=== PATIENT | male | born 1975 | race Caucasian/White ===

== ENCOUNTER 2016-07-16 02:12 | Inpatient (IN) | payer OTHER ==
[2016-07-16 03:11] VITALS: BMI 42.7
--- NOTE | 2016-07-16 03:41 | DIRPT ---
CLINICAL DATA: Acute onset of shortness of breath and right-sided chest pain. Initial encounter. EXAM: CHEST 2 VIEW COMPARISON: Chest radiograph performed 11/09/2015 FINDINGS: The lungs are well-aerated. Mild left basilar atelectasis is noted. There is no evidence of pleural effusion or pneumothorax. The heart is normal in size; the mediastinal contour is within normal limits. No acute osseous abnormalities are seen. IMPRESSION: Mild left basilar atelectasis noted. Lungs otherwise clear. Electronically Signed By: Rebel Bowers M.D. On: 07/16/2016 03:38
--- NOTE | 2016-07-16 03:49 | EDPRACDOC ---
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 Cant inhale deeply and so feels sob when he has to breath deep. Denies fever, change in urine, cough, sore throat, trauma. Med hx = unknow, has no pcp. No abdominal surgical hx. + smoker. Pain Location: Reports: Right, Thoracic (right chest wall) Pain Caused By: Reports: Spontaneous Circumstances: Reports: Unknown Relevant History: Reports: None Pain Severity: Reports: Moderate Pain Quality: Reports: Sharp Worsened By: Reports: Breathing, Movement Associated Signs and Symptoms: Reports: Abdominal Pain, Nausea, Vomiting <Elia Woody - Last Filed: 07/16/16 06:03> <Corine Christianson - Last Filed: 07/16/16 09:34> - General Information Chief Complaint: Back Pain Stated Complaint: ABDOMINAL & BACK PAIN Home Medications: Home Medications No Home Medications 07/16/16 Allergies/Adverse Reactions: Allergies Allergy/AdvReac Type Severity Reaction Status Date / Time iodine Allergy Severe Anaphylaxis Verified 07/16/16 07:35 * shellfish derived Allergy Anaphylaxis Verified 07/16/16 07:35 * ED Past Medical History - History Reviewed Yes Nurses notes reviewed and agree except as marked - Patient Medical History Cardiac History: Reports: Hypertension GI/ History: Reports: Ulcer Psychological History: Reports: Anxiety. Denies: Depression, Substance Use Disorder Systemic History: Denies: Cancer Surgical History: Reports: Tonsillectomy/Adnoidectomy, Other (Had eustachian tubes placed a child.) - Family Medical History Reports: Hypertension, Diabetes, Cardiac Disorders (Father at age 57 from complications of [place]) - Social Medical History Smoking Status: Heavy tobacco smoker (5 or more cigarettes/day or daily pipe/ cigar) Social History: Denies: Substance Use Disorder <Elia Woody - Last Filed: 07/16/16 06:03> EDM Review of Systems - Review of Systems ROS Negative Except as Marked: Yes All systems reviewed and were negative except as marked Respiratory: Shortness of Breath Gastrointestinal: Diarrhea, Nausea, Vomiting Musculoskeletal: Chestwall (right) <Elia Woody - Last Filed: 07/16/16 06:03> - Physical Exam Constitutional: Alert Oriented to: Time, Person, Place Last recorded Vital Signs: Last Vital Signs Temp 98.6 F 07/16/16 03:08 Pulse 85 07/16/16 03:08 Resp 20 07/16/16 03:08 BP 159/99 07/16/16 03:08 Pulse Ox 98 07/16/16 03:08 Oxygen Pulse Oxygen Saturation 98 O2 Device Room Air Oxygen Flow Rate Fraction of Inspired Oxygen ( FIO2) - HEENT Head: Normal Eye Exam: negative: Conjunctival Injection, Scleral Icterus Oropharynx: negative: Drooling TMJ: Normal Nose: No Symptoms Reported Neck: Normal - Respiratory/Cardiovascular Respiratory: Normal - CTA Cardiovascular: Normal - GI Auscultation: Normal Palpation: Normal Tenderness: Moderate, RUQ, Epigastric Roberts's Sign: Positive - Musculoskeletal Back: Normal Extremities: Normal Musculoskeletal Comment: right side chest wall is non TTP. right side chest non TTP. - Integumentary Skin: Normal - Neurologic Mood Description: Normal Thought: Coherent Perception: Normal <Elia Woody - Last Filed: 07/16/16 06:03> - Physical Exam Last recorded Vital Signs: Last Vital Signs Temp 98.4 F 07/16/16 07:27 Pulse 76 07/16/16 08:33 Resp 20 07/16/16 08:33 BP 121/73 07/16/16 08:33 Pulse Ox 92 07/16/16 08:33 Oxygen Pulse Oxygen Saturation 92 O2 Device Room Air Oxygen Flow Rate Fraction of Inspired Oxygen ( FIO2) <Corine Christianson - Last Filed: 07/16/16 09:34> ED Back Exam - Neurologic Motor Deficit: None - Musculoskeletal Cervical: Normal Thoracic: Normal Lumbar: Normal Midline: Normal Paraspinous: Normal Pelvis: Normal <Elia Woody - Last Filed: 07/16/16 06:03> - Diagnostic Imaging Chest Image interpreted by: Radiologist EXAM: CHEST 2 VIEW COMPARISON: Chest radiograph performed 11/09/2015 FINDINGS: The lungs are well-aerated. Mild left basilar atelectasis is noted. There is no evidence of pleural effusion or pneumothorax. The heart is normal in size; the mediastinal contour is within normal limits. No acute osseous abnormalities are seen. IMPRESSION: Mild left basilar atelectasis noted. Lungs otherwise clear. Electronically Signed By: Rebel Bowers M.D. On: 07/16/2016 03:38 - Additional Information care given over to DR Silver at this time. <Elia Woody - Last Filed: 07/16/16 06:03> - Re-evaluation Re-evaluation 3 Re-evaluation Time: 07:30 I ASSUMED CARE OF THIS PATIENT 12/1929 DR. LEVIN WITH LABS AND RIGHT UPPER QUADRANT ULTRASOUND PENDING WITH THE PATIENT STABLE CONDITION. UPON EXAM HE IS ALERT ORIENTED. RELATIVELY COMFORTABLE. Re-evaluation 4 Re-evaluation Time: 08:53 (BACK FROM ULTRASOUND, PAIN IS INCREASING.) - Results 07/16/16 03:25 07/16/16 08:06 WBC 15.3 xk/uL (3.8-10.8) H 07/16/16 03:25 RBC 5.10 xM/uL (4.70-6.10) 07/16/16 03:25 Hgb 16.0 g/dL (14.0-18.0) 07/16/16 03:25 Hct 47.8 % (42-52) 07/16/16 03:25 MCV 94 fL (80-94) 07/16/16 03:25 MCH 31.3 pg (27-32) 07/16/16 03:25 MCHC 33.4 g/dl (33-36) 07/16/16 03:25 RDW 14.1 % (11.5-14.5) 07/16/16 03:25 Plt Count 239 xk/uL (130-400) 07/16/16 03:25 MPV 8.5 fL (7.4-10.4) 07/16/16 03:25 Neut % (Auto) 68.3 % (45-76) 07/16/16 03:25 Lymph % (Auto) 21.6 % (17-44) 07/16/16 03:25 [place] % (Auto) 7.8 % (3-10) 07/16/16 03:25 Eos % (Auto) 1.7 % (0-5) 07/16/16 03:25 Baso % (Auto) 0.6 % (0-2) 07/16/16 03:25 Absolute Neuts (auto) 10.40 xk/uL (1.7-8.2) H 07/16/16 03:25 Absolute Lymphs (auto) 3.21 xk/uL (0.65-4.75) 07/16/16 03:25 Sodium 139 mEq/L (137-146) 07/16/16 08:06 Potassium 4.9 mEq/L (3.5-5.1) 07/16/16 08:06 Chloride 105 mEq/L (98-107) 07/16/16 08:06 Carbon Dioxide 25 mMOL/L (22-33) 07/16/16 08:06 Anion Gap 14 mEq/L (8-16) 07/16/16 08:06 BUN 16 MG/DL (9-20) 07/16/16 08:06 Creatinine 0.80 MG/DL (0.66-1.25) 07/16/16 08:06 Estimated GFR (MDRD) > 60 mL/min (>=60) 07/16/16 08:06 Glucose 127 MG/DL (70-99) H 07/16/16 08:06 Calculated Osmolality 271 MOs/Kg (270-290) 07/16/16 08:06 Calcium 9.2 MG/DL (8.4-10.2) 07/16/16 08:06 Total Bilirubin 0.6 MG/DL (0.2-1.3) 07/16/16 08:06 AST 29 IU/L (17-59) 07/16/16 08:06 ALT 46 IU/L (21-72) 07/16/16 08:06 Alkaline Phosphatase 63 IU/L (38-126) 07/16/16 08:06 Total Protein 7.3 G/DL (6.3-8.2) 07/16/16 08:06 Albumin 4.0 G/DL (3.5-5.0) 07/16/16 08:06 Lipase 258 U/L (23-300) 07/16/16 08:06 Lab Results 07/16/16 07/16/16 08:06 03:25 WBC 15.3 H RBC 5.10 Hgb 16.0 Hct 47.8 MCV 94 MCH 31.3 MCHC 33.4 RDW 14.1 Plt Count 239 MPV 8.5 Neut % (Auto) 68.3 Lymph % (Auto) 21.6 [place] % (Auto) 7.8 Eos % (Auto) 1.7 Baso % (Auto) 0.6 Absolute Neuts (auto) 10.40 H Absolute Lymphs (auto) 3.21 Sodium 139 Potassium 4.9 Chloride 105 Carbon Dioxide 25 Anion Gap 14 BUN 16 Creatinine 0.80 Estimated GFR (MDRD) > 60 Glucose 127 H Calculated Osmolality 271 Calcium 9.2 Total Bilirubin 0.6 AST 29 ALT 46 Alkaline Phosphatase 63 Total Protein 7.3 Albumin 4.0 Lipase 258 - Diagnostic Imaging Abdomen Patient Name: CHINA ALLEN LOC: ED : 1975 AGE: 41 Order Date:07/16/16 Date of Service: Report # [id number] Ord Physician: Medhat Silver DO Exam # [id number] Emergency Physician: Corine Christianson MD Exam(s): [id number] US/US GALLBLADDER-BILIARY (RUQ) CLINICAL DATA: Abdominal pain with CT demonstrating large gallstone and possible mild gallbladder wall thickening. EXAM: US ABDOMEN LIMITED - RIGHT UPPER QUADRANT COMPARISON: CT of the abdomen performed earlier today. FINDINGS: Gallbladder: Shadowing 2.5 cm gallstone is identified in the neck of the gallbladder, similar to CT findings. By ultrasound, there is no overt gallbladder wall thickening. Adjacent to the gallbladder fossa, decreased echogenicity of the liver may represent fatty sparing versus edema. A sonographic Roberts sign was able to be elicited during the examination. Common bile duct: Diameter: Normal caliber of 5 mm. Liver: The liver demonstrates coarse echotexture and increased echogenicity, likely reflecting diffuse steatosis. No overt cirrhotic contour abnormalities or focal lesions are identified. There is no evidence of intrahepatic biliary ductal dilatation. The portal vein is open. IMPRESSION: 2.5 cm gallstone lodged in the neck of the gallbladder. Although by ultrasound there is no overt gallbladder wall thickening, a positive sonographic Roberts's sign was elicited and there may be some adjacent edema versus fatty sparing in the liver. Electronically Signed By: Eder Nieves M.D. On: 07/16/2016 08:55 Electronically Signed By: Eder Nieves MD Electronically Signed Date/Time: 857 Dictate Date/Time: 07/16/16 0834 Technologist: Dg Feliz Transcribed By: Huseyin Transcribed Date/Time: 07/16/16 0855 <Corine Christianson - Last Filed: 07/16/16 09:34> <Elia Woody - Last Filed: 07/16/16 06:03> - Departure Disposition: Admit IP To This Hospital Decision to Admit Time: 09:34 Decision to admit date: 07/16/16 Decision to admit: from ED - Physician Consulted Surgery Time Called: 09:11 Provider Called: Elia Pandey (VM TO CALL ED) Time Hand Tile Maker Returned Call: 09:34 <Corine Christianson - Last Filed: 07/16/16 09:34> - Departure Condition: Stable Final Diagnosis: Acute cholecystitis Referrals: None,No Provider [Primary Care Provider] - One Week
[2016-07-16] MEDS ORDERED: METHYLPREDNISOLONE 125 MG/2 ML VIAL IV ONE (04:24)
[2016-07-16] MEDS ORDERED: ONDANSETRON HCL 4 MG/2 ML VIAL IV ONE (04:25)
[2016-07-16] MEDS ORDERED: MORPHINE 4 MG/ML INJECTION IM ONE (04:25)
[2016-07-16] MEDS ORDERED: Pharmacy Review for Metformin - IV Contrast Given SCH (06:00)
--- NOTE | 2016-07-16 07:07 | DIRPT ---
CLINICAL DATA: Right abdominal pain and fever. EXAM: CT ABDOMEN AND PELVIS WITH CONTRAST TECHNIQUE: Multidetector CT imaging of the abdomen and pelvis was performed using the standard protocol following bolus administration of intravenous contrast. CONTRAST: 100 cc Isovue 370 IV. COMPARISON: No prior CT abdomen/ pelvis. Chest CT angiogram from 05/06/2014. FINDINGS: Lower chest: Basilar left lower lobe 4 mm solid pulmonary nodule (series 4/image 8). Hepatobiliary: Diffuse hepatic steatosis. No liver mass. There is a 2.6 cm peripherally calcified gallstone in the gallbladder neck. There is mild diffuse gallbladder wall thickening, without pericholecystic fluid. No biliary ductal dilatation. Pancreas: Normal, with no mass or duct dilation. Spleen: Normal size. No mass. Adrenals/Urinary Tract: Normal adrenals. Normal kidneys with no hydronephrosis and no renal mass. Normal bladder. Stomach/Bowel: Grossly normal stomach. Normal caliber small bowel with no small bowel wall thickening. Normal appendix. There is mild scattered diverticulosis throughout the colon, with no large bowel wall thickening or pericolonic fat stranding. Vascular/Lymphatic: Normal caliber abdominal aorta. Patent portal, splenic, hepatic and renal veins. No pathologically enlarged lymph nodes in the abdomen or pelvis. Reproductive: Normal size prostate. Nonspecific internal prostatic calcifications. Other: No pneumoperitoneum, ascites or focal fluid collection. Musculoskeletal: No aggressive appearing focal osseous lesions. Moderate degenerative changes in the visualized thoracolumbar spine. IMPRESSION: 1. Mild diffuse gallbladder wall thickening with 2.6 cm gallstone in the gallbladder neck. Findings could indicate acute cholecystitis. Consider further characterization with right upper quadrant abdominal sonography. 2. No biliary ductal dilatation. 3. No evidence of bowel obstruction or acute bowel inflammation. Normal appendix. 4. Diffuse hepatic steatosis. 5. Left lower lobe 4 mm pulmonary nodule. If the patient is at high risk for bronchogenic carcinoma, follow-up chest CT at 1 year is recommended. If the patient is at low risk, no follow-up is needed. This recommendation follows the consensus statement: Guidelines for Management of Small Pulmonary Nodules Detected on CT Scans: A Statement from the Fleischner Society as published in Radiology 2005; 237:395-400. 6. Mild colonic diverticulosis. Electronically Signed By: Alex Lacy M.D. On: 07/16/2016 07:05
[2016-07-16] MEDS ORDERED: HYDROmorphone 1 MG INJECTION IV ONE ×3 (07:12→08:38)
[2016-07-16 07:53] LABS: AUTOMATED BASOPHIL 0.6 % (0-2); AUTOMATED EOSINOPHIL 1.7 % (0-5); AUTOMATED LYMPH 21.6 % (17-44); AUTOMATED MONOCYTE 7.8 % (3-10); AUTOMATED NEUTROPHIL 68.3 % (45-76); MPV 8.5 fL (7.4-10.4)
[2016-07-16 08:30] LABS: BLOOD UREA NITROGEN 16 MG/DL (9-20); CALCIUM 9.2 MG/DL (8.4-10.2); CALCULATED OSMOLALITY 271 MOs/Kg (270-290); CHLORIDE 105 mEq/L (98-107); GLUCOSE 127 MG/DL (70-99); SODIUM LEVEL 139 mEq/L (137-146); TOTAL PROTEIN 7.3 G/DL (6.3-8.2)
[2016-07-16] MEDS ORDERED: PIPERACILLIN AND TAZOBACTAM 3.375 GM in D5W 100 ML IV ONE (08:51)
[2016-07-16] MEDS ORDERED: MORPHINE 4 MG/ML INJECTION IV ONE (08:51)
[2016-07-16] MEDS ORDERED: NICOTINE 21 MG PATCH TOP ONE ×2 (08:57→08:59)
--- NOTE | 2016-07-16 08:57 | DIRPT ---
CLINICAL DATA: Abdominal pain with CT demonstrating large gallstone and possible mild gallbladder wall thickening. EXAM: US ABDOMEN LIMITED - RIGHT UPPER QUADRANT COMPARISON: CT of the abdomen performed earlier today. FINDINGS: Gallbladder: Shadowing 2.5 cm gallstone is identified in the neck of the gallbladder, similar to CT findings. By ultrasound, there is no overt gallbladder wall thickening. Adjacent to the gallbladder fossa, decreased echogenicity of the liver may represent fatty sparing versus edema. A sonographic Roberts sign was able to be elicited during the examination. Common bile duct: Diameter: Normal caliber of 5 mm. Liver: The liver demonstrates coarse echotexture and increased echogenicity, likely reflecting diffuse steatosis. No overt cirrhotic contour abnormalities or focal lesions are identified. There is no evidence of intrahepatic biliary ductal dilatation. The portal vein is open. IMPRESSION: 2.5 cm gallstone lodged in the neck of the gallbladder. Although by ultrasound there is no overt gallbladder wall thickening, a positive sonographic Roberts's sign was elicited and there may be some adjacent edema versus fatty sparing in the liver. Electronically Signed By: Eder Nieves M.D. On: 07/16/2016 08:55
[2016-07-16] MEDS ORDERED: SIMETHICONE 80 MG TAB PO PRN (09:34)
[2016-07-16] MEDS ORDERED: OXYCODONE HCL 5 MG TABLET PO PRN (09:34)
[2016-07-16] MEDS ORDERED: ACETAMINOPHEN 325 MG/TAB TABLET PO PRN (09:34)
[2016-07-16] MEDS ORDERED: ONDANSETRON HCL 4 MG/2 ML VIAL IV PRN (09:34)
[2016-07-16] MEDS ORDERED: LR 1,000 ML IV ONE (09:35)
[2016-07-16] MEDS ORDERED: MORPHINE 2 MG/ML INJECTION IV PRN ×3 (09:37)
[2016-07-16] MEDS ORDERED: CEFOXITIN 2 GM in D5W 100 ML IV ONE (10:00)
[2016-07-16] MEDS ORDERED: Vaccine Screening Complete SCH (12:00)
[2016-07-16] MEDS: MORPHINE 2 MG/ML INJECTION IV PRN ×4 (13:12→22:48)
[2016-07-16] MEDS: CEFOXITIN 1 GM in D5W 100 ML IV SCH ×2 (16:39→21:53)
[2016-07-16] MEDS ORDERED: CHLORHEXIDINE (HIBICLENS) 4 OZ BOTTLE TOP ONE (17:19)
--- NOTE | 2016-07-16 17:58 | HISTPHYS ---
- Chief Complaint Abd Pain - History of Present Illness 41 YO WM with N/V/D for the past several days. He has been having RUQ and chest pain. His workup in ER revealed Cholecystitis and cholelithiasis. The pain is sharp and stabbing. mostly postprandial. IT is a 8/10. No alleviating factors noted. The pain does radiate to his back. - Medical History Cardiac History: Reports: Hypertension Respiratory History: Reports: No Significant History GI/ History: Reports: Gastroesophageal Reflux, Ulcer Systemic History: Denies: Diabetes, Hyperthyroidism, Hypothyroidism Neurological History: Denies: Seizures, Migraine, Epilepsy Psychological History: Reports: Anxiety. Denies: Depression - Surgical History Reports: Tonsillectomy/Adnoidectomy - Medictions/Allergies Allergies iodine Allergy (Severe, Verified 07/16/16 07:35) Anaphylaxis* shellfish derived Allergy (Verified 07/16/16 07:35) Anaphylaxis* Home Medications No Home Medications 07/16/16 - Family History Reports: Hypertension, Diabetes, Cardiac Disorders (Father at age 57 from complications of [place]) - Social History Travel Outside of [place] in the Last 3 Months?: No Smoking Status: Heavy tobacco smoker (5 or more cigarettes/day or daily pipe/ cigar) - Review of Systems Constitutional: Chills, Fatigue, Loss of Appetite Eyes: negative: Blurred Vision, Photophobia, Vision Loss Ears: negative: Hearing Loss, Tinnitus Mouth: negative: Tooth Pain, Stomatitis Throat/Neck: negative: Masses, Hoarseness Respiratory: negative: Cough, Hemoptysis, Shortness of Breath, Wheezing Gastrointestinal: Nausea, Vomiting, Abdominal Pain, Diarrhea Genitourinary: negative: Dysuria, Hematuria Neurological: negative: Dizziness, Seizure, Weakness Musculoskeletal:: Muscle Pain. negative: Joint Pain, Joint Swelling Integumentary: negative: Itching, Rash, Wound, Pressure Sore Allergic/Immunologic: negative: Hives, Itching Hematologic: negative: Lymphadenopathy, Easy Bruising, Easy Bleeding Endocrine: negative: Weight Gain, Weight Loss, Excessive Thirst, Excessive Hunger Psychiatric: negative: Anxiety, Depression - Physical Exam Vital Signs: Initial Vitals Temperature 98.6 F 07/16/16 03:08 Pulse Rate 85 07/16/16 03:08 Respiratory Rate 20 07/16/16 03:08 Blood Pressure 159/99 07/16/16 03:08 Pulse Oxygen Saturation 98 07/16/16 03:08 Constitutional: No apparent distress, Alert. negative: Distress Oriented to: Time, Person, Place - HEENT Head: Normal. negative: Laceration, Swelling Eye: negative: Conjunctival Injection Nose: negative: Congestion, Discharge, Deformity Respiratory: negative: Rales, Retractions, Rhonchi, Stridor Cardiovascular: Normal. negative: Irregular - GI Auscultation: Normal Palpation: Normal, Enlarged liver. negative: Fluid Wave, Mass, Tense Tenderness: Moderate, RUQ, Epigastric Roberts's Sign: Positive - Musculoskeletal Back: negative: Abrasion, Ecchymosis, Laceration Extremities: negative: Clubbing, Cyanosis, Edema - Integumentary Skin: Warm. negative: Clammy, Diaphoretic - Lab Results Laboratory Results - last 24 hr 07/16/16 07/16/16 03:25 08:06 WBC 15.3 H RBC 5.10 Hgb 16.0 Hct 47.8 MCV 94 MCH 31.3 MCHC 33.4 RDW 14.1 Plt Count 239 MPV 8.5 Neut % (Auto) 68.3 Lymph % (Auto) 21.6 [place] % (Auto) 7.8 Eos % (Auto) 1.7 Baso % (Auto) 0.6 Absolute Neuts (auto) 10.40 H Absolute Lymphs (auto) 3.21 Sodium 139 Potassium 4.9 Chloride 105 Carbon Dioxide 25 Anion Gap 14 BUN 16 Creatinine 0.80 Estimated GFR (MDRD) > 60 Glucose 127 H Calculated Osmolality 271 Calcium 9.2 Total Bilirubin 0.6 AST 29 ALT 46 Alkaline Phosphatase 63 Total Protein 7.3 Albumin 4.0 Lipase 258 - Diagnostic Findings Imaging noted and reviewed. - Assessment/Plan (1) RUQ abdominal pain R10.11 - RIGHT UPPER QUADRANT PAIN Acute Present on Admission: Yes (2) Epigastric abdominal pain R10.13 - EPIGASTRIC PAIN Acute Present on Admission: Yes (3) Acute cholecystitis K81.0 - ACUTE CHOLECYSTITIS Acute Present on Admission: Yes (4) Pleuritic chest pain R07.81 - PLEURODYNIA Acute Present on Admission: Yes (5) Tobacco abuse Z72.0 - TOBACCO USE Chronic Present on Admission: Yes Plan: Will need to admit and start on IV antibiotics. He has an impacted Gallstone at the neck of the GB. The risks and benefits of cholecystectomy were discussed and all his questions were answered.
[2016-07-16] MEDS ORDERED: NICOTINE 14 MG PATCH TOP SCH (18:00)
[2016-07-17] MEDS: CEFOXITIN 1 GM in D5W 100 ML IV SCH ×2 (04:00→10:28)
[2016-07-17] MEDS ORDERED: ONDANSETRON HCL 4 MG/2 ML VIAL IV PRN (06:44)
[2016-07-17] MEDS ORDERED: ONDANSETRON HCL 4 MG ODT TAB PO PRN (06:44)
[2016-07-17] MEDS ORDERED: MEPERIDINE 25 MG/ML TUBEX IV PRN (06:44)
[2016-07-17] MEDS ORDERED: LABETALOL 20 MG/4 ML SYRINGE IV PRN (06:44)
[2016-07-17] MEDS ORDERED: HYDROmorphone 1 MG INJECTION IV PRN ×2 (06:44)
[2016-07-17] MEDS ORDERED: FENTANYL 100 MCG/2 ML VIAL IV PRN ×2 (06:44)
[2016-07-17] MEDS ORDERED: hydrALAZINE 20 MG/ML VIAL IV PRN (06:44)
--- NOTE | 2016-07-17 06:48 | HIM.ANES ---
Anesthesia Evaluation & Plan - Focused Review of Systems Cardiac History: Yes: Hx Hypertension, Hx Cardiac Disorders HEENT: No: Other HEENT Problems Respiratory: Yes: Hx Sleep Apnea, Hx Snoring Gastrointestinal: Yes: Hx Gastroesophageal Reflux Disease Neurological/Musculoskeletal: No: Hx Seizures, Hx Neurological Disorders Psychological: Yes Hx Anxiety, No Hx Depression Endocrine: No: Hx Hyperthyroidism, Hx Hypothyroidism Blood/Autoimmune: No: Hx Blood Transfusions, Hx AIDS, Hx Hepatitis (type) Smoking Status: Heavy tobacco smoker (5 or more cigarettes/day or daily pipe/ cigar) Past Social History: Denies: Substance Use Disorder Hx Chest Xray (date): Yes (07/16/16) Surgical History: Yes: T&A, Other (Had eustachian tubes placed a child.) - Focused Physical Exam NPO since: midnight Mallampati: Class II Thyromental Distance: Greater than 3 Neck: Full Range of Motion Dental: Loose/Decaying Teeth Cardiovascular/Chest: Normal Respiratory: Lungs clear Beta Geoff given (if appropriate): N/A Other: Problem List Problem Status Onset Acute cholecystitis Acute Epigastric abdominal pain Acute RUQ abdominal pain Acute Tobacco abuse Chronic Chest pain Acute Community acquired bacterial pneumonia Acute Pleuritic chest pain Acute Pneumonia Acute Sleep apnea, obstructive Acute Tobacco abuse Chronic Allergies Allergy/AdvReac Type Severity Reaction Status Date / Time iodine Allergy Severe Anaphylaxis Verified 07/16/16 07:35 * shellfish derived Allergy Anaphylaxis Verified 07/16/16 07:35 * Home Medications Medication Instructions Recorded Last Taken Type No Home Medications 07/16/16 Unknown History Height and Weight Patient's weight 131.258 kg Weight (Calculated Kilograms) 131.258 Vital Signs Temperature 98.0 F 07/17/16 06:27 Pulse Rate 95 07/17/16 06:27 Respiratory Rate 20 07/17/16 06:27 Blood Pressure 135/75 07/17/16 06:27 Pulse Oxygen Saturation 95 07/17/16 06:27 - Anesthetic Plan Anesthesia Type: General ASA Class: 2 -: I have examined this patient and reviewed the medical record. The patient has been assessed prior to anesthesia. Risks and benefits of anesthesia and anesthetic technique options have been discussed and all questions answered. The patient accepts the risk and desires me to proceed with the planned anesthetic.
[2016-07-17] MEDS: BUPIVACAINE 0.25% 30 ML VIAL ONE ×2 (07:13→08:25)
[2016-07-17] MEDS: ISOVUE-300 (61%) 50 ML ONE ×2 (07:13→07:50)
[2016-07-17] MEDS ORDERED: CEFAZOLIN 1 GM VIAL ONE (07:39)
[2016-07-17] MEDS ORDERED: FLU VACCINE (Afluria) 0.5 ML DOSE IM ONE (08:00)
[2016-07-17] MEDS ORDERED: FENTANYL 100 MCG/2 ML VIAL ONE (09:39)
[2016-07-17] MEDS ORDERED: PROPOFOL 200 MG/20 ML VIAL IV ONE (10:00)
[2016-07-17] MEDS ORDERED: ROCURONIUM 50 MG/5 ML VIAL IV ONE (10:00)
[2016-07-17] MEDS ORDERED: ONDANSETRON HCL 4 MG/2 ML VIAL IV ONE (10:00)
[2016-07-17] MEDS ORDERED: MIDAZOLAM 2 MG/2 ML VIAL IV ONE (10:00)
[2016-07-17] MEDS ORDERED: METOCLOPRAMIDE 10 MG/2 ML VIAL IV ONE (10:00)
[2016-07-17] MEDS ORDERED: FENTANYL 250 MCG/5 ML VIAL IV ONE (10:00)
[2016-07-17] MEDS ORDERED: GLYCOPYRROLATE 1 MG VIAL IM ONE (10:00)
[2016-07-17] MEDS ORDERED: DEXAMETHASONE 4 MG/ML VIAL IV ONE (10:00)
[2016-07-17] MEDS ORDERED: NEOSTIGMINE 1 MG/1 ML (1:1000) INJ 10 ML MDV IM ONE (10:00)
[2016-07-17] MEDS ORDERED: SUCCINYLCHOLINE 20 MG/1 ML INJ 10 ML MDV IV ONE (10:00)
[2016-07-17] MEDS ORDERED: LIDOCAINE 100 MG PFS IV ONE (10:00)
[2016-07-17] MEDS: MORPHINE 2 MG/ML INJECTION IV PRN (10:23)
--- NOTE | 2016-07-17 10:48 | HIMOPRPT ---
PROCEDURE: DATE OF PROCEDURE: 07/17/16 PREOPERATIVE DIAGNOSES: Cholecystitis and cholelithiasis. POSTOPERATIVE DIAGNOSES: Cholecystitis and cholelithiasis. PROCEDURE: Laparoscopic cholecystectomy with intraoperative cholangiogram. SURGEON: Elia Pandey MD ANESTHESIA: General. COMPLICATIONS: None. ESTIMATED BLOOD LOSS: <cc OPERATIVE NOTE: The patient was placed supine on the operative table. After induction of general anesthesia and endotracheal intubation, the patient was prepped and draped in the usual fashion. Time-out was taken. The patient was re- identified and the procedure was verified, and was given pre-operative antibiotics. An infraumbilical incision was made and a 5-mm Optiview trocar was placed without difficulties. The abdomen was insufflated with CO2 until a pressure of 15 mm HG was achieved. The camera was introduced and we inspected the abdominal cavity. The liver was smooth without any nodularities or masses. At this point, we placed two 5 mm ports in the right upper quadrant under direct visualization and an 11-mm port in the epigastric region. We were able to place a grasper on the dome, the other on the infundibulum of the gallbladder. The Correll of [place] was dissected using lateral retraction of the infundibulum thus exposing this critical angle between the cystic duct and CBD. The peritoneal attachment around the infundibulum of the gallbladder to the liver was dissected free using electrocautery. Thus giving a partial retrograde dissection. This allowed the visualization of the cystic duct and artery as they entered the gallbladder. Having developed this Critical View of Safety at the triangle of Calot we proceeded with our cholangiogram. A [place] clamp was placed across the body of the gallbladder, the tip of the catheter was inserted into the infundibulum. We then were able to flush this. Using the C -arm fluoroscopy unit, we performed a cholangiogram. In real time, we saw the passage of contrast throughout the biliary tree, common hepatic, common bile duct, and emptying readily into the duodenum. No filling defects were noted. This was a normal cholangiogram. At this point, the catheter was removed. Clips were placed on the cystic duct and artery and these structures were divided. A PDS loop was placed around the cystic duct stump. We then removed the gallbladder off the liver bed using electrocautery. The liver bed remained completely hemostatic. We removed the gallbladder and placed it into a laparoscopic retrieval bag. We irrigated the operative field and suctioned out the irrigation. We then removed the ports allowing the CO2 to escape. The patient then had the large port site closed at the level of the fascia using #0- Vicryl sutures. The wounds were all irrigated and infiltrated with 0.25% Marcaine. The skin edges were approximated using 4-0 Monocryl and Dermabond. The patient tolerated this well. Sponge, needle, and instrument counts were correct.
[2016-07-17] MEDS ORDERED: IBUPROFEN INTRAVENOUS 800 MG in NS 250 ML IV ONE (11:00)
[2016-07-17 12:23] VITALS: TEMP 98.4
[2016-07-17 13:28] VITALS: BP 101/54; PULSE 85
--- NOTE | 2016-07-17 13:50 | PCM.DCS92 ---
- Final/Secondary Discharge Diagnosis (1) RUQ abdominal pain Resolved R10.11 - RIGHT UPPER QUADRANT PAIN Present on Admission: Yes (2) Epigastric abdominal pain Resolved R10.13 - EPIGASTRIC PAIN Present on Admission: Yes (3) Acute cholecystitis Resolved K81.0 - ACUTE CHOLECYSTITIS Present on Admission: Yes (4) Pleuritic chest pain Resolved R07.81 - PLEURODYNIA Present on Admission: Yes (5) Tobacco abuse Chronic Z72.0 - TOBACCO USE Present on Admission: Yes Discharge Disposition: Home Discharge Condition: Stable Cognitive Discharge Status: Unimpaired Fuctional Discharge Status: Independent Physician Follow up/Referrals: None,No Provider [Family Provider] - One Week Elia Pandey MD [Staff Physician] - Call for Appointment Diet at Discharge: Low Fat - DC Summary Notes Hospital Course Note:: Discharge summary on patient named CHINA ALLEN admitted to [facility] on 07/16/16 by Elia Pandey MD. Date of discharge is 07/17/16 Patient was admitted with cholecystitis. He had LC IOC. He is doing well post- op Will D/C home and follow up PRN. - Physical Exam Vital Signs: Initial Vitals Temperature 98.6 F 07/16/16 03:08 Pulse Rate 85 07/16/16 03:08 Respiratory Rate 20 07/16/16 03:08 Blood Pressure 159/99 07/16/16 03:08 Pulse Oxygen Saturation 98 07/16/16 03:08
--- NOTE | 2016-07-17 14:01 | SC.ANESPOS ---
Post-Anesthesia Note LOC: Fully Awake Post-Anesthesia Assessment: Awake, Returned to Baseline, Hemodynamically Stable , Pain Control Adequate Phase I & II Recovery Complete: Yes Apparent Anesthesia Complication: No : N PACU Discharge Time: 10:18 - Vital Signs Blood Pressure: 101/54 Pulse: 85 Resp Rate: 18 O2 Sat: 94 Temp: 98.4 F - Comments Anesthesia Discharge Time Report Time 10:18
--- NOTE | 2016-07-17 15:00 | CAPUEKG ---
[place], [place] Test Date: 2016-07-16 Pat Name: CHINA ALLEN Department: Room: 370 Gender: Male Tobacco Classer: : Requested By: Order Number: Reading MD: William Pineda MD Measurements Intervals [place] Rate: 76 P: 43 IA: 170 QRS: 39 QRSD: 108 T: 24 QT: 388 QTc: 436 Interpretive Statements Normal sinus rhythm Normal ECG Electronically Signed On 07-17-16 15:00:06 EST by William Pineda MD [id number]> [id number]
--- NOTE | 2016-07-17 15:51 | DIRPT ---
CLINICAL DATA: 41-year-old male with cholecystitis EXAM: INTRAOPERATIVE CHOLANGIOGRAM TECHNIQUE: Cholangiographic images from the C-arm fluoroscopic device were submitted for interpretation post-operatively. Please see the procedural report for the amount of contrast and the fluoroscopy time utilized. COMPARISON: Prior abdominal ultrasound 07/16/2016 FINDINGS: Three intraoperative spot radiographs obtained at the time of intraoperative cholangiogram during laparoscopic cholecystectomy. The images demonstrate cannulation of the gallbladder neck and opacification of the biliary tree. There is no evidence of biliary ductal dilatation, stenosis, stricture or choledocholithiasis. Contrast material passes freely through the ampulla and into the duodenum. IMPRESSION: Negative intraoperative cholangiogram. Electronically Signed By: Abel Funez M.D. On: 07/17/2016 15:48
== END 2016-07-17 15:43 | disposition home or self-care (01) | DRG 419 ==
LOC: ED 02:12 → MPS3 09:51
PROVIDERS: ADMIT Surgery; ATTEND Surgery
PROC: BF131ZZ Fluoroscopy of Gallbladder and Bile Ducts using Low Osmolar Contrast (ICD-10-PCS; 2016-07-17)
PROC: 0FT44ZZ Resection of Gallbladder, Percutaneous Endoscopic Approach (ICD-10-PCS; principal; 2016-07-17 07:15)
DX: K80.00 Calculus of gallbladder with acute cholecystitis without obstruction (principal); I10 Essential (primary) hypertension; K21.9 Gastro-esophageal reflux disease without esophagitis; F17.210 Nicotine dependence, cigarettes, uncomplicated
CPT/HCPCS: 36415; 71020; 74177; 74300; 76705; 80053; 83690; 85025; 90656; 93005; 96365; 96375; 96376; 99284; 99406; A9698; J0330; J0690; J0694; J1100; J1170; J1741; J2001; J2250; J2270; J2405; J2543; J2710; J2765; J2930; J3010; J3490; J7050; J7060; S0020